=== PATIENT | female | born 1980 | race African-American/Black ===

== ENCOUNTER 2018-04-08 10:03 | Emergency (ER) | payer MEDICAID, OTHER ==
[~2018-04-08] VITALS: Ht 170.2 cm; Wt 80.0 kg
[2018-04-08 14:30] VITALS: BP 131/82
== END 2018-04-08 14:35 | disposition home or self-care (01) ==
LOC: ER 10:03
DX: J06.9 Acute upper respiratory infection, unspecified (principal); F32.9 Major depressive disorder, single episode, unspecified
CPT/HCPCS: 71045; 81025; 99283